=== PATIENT | female | born 1965 | race Caucasian/White ===

== ENCOUNTER 2018-07-14 13:06 | Inpatient (IN) ==
[2018-07-14] MEDS ORDERED: Heparin IV Standard *NO* Bolus IV ONE (16:48)
[2018-07-14] MEDS ORDERED: ONDANSETRON INJ 2 MG/ML 2 ML VIAL IV PRN (16:56)
[2018-07-14] MEDS ORDERED: NITROGLYCERIN SL 0.4 MG/TAB TAB SL PRN (16:56)
[2018-07-14] MEDS ORDERED: ACETAMINOPHEN 325 MG TAB PO PRN (16:56)
[2018-07-14] MEDS ORDERED: ALUMINUM/MAGNESIUM SUSP 30 ML UDC PO PRN (16:56)
--- NOTE | 2018-07-14 17:31 | History & Physical Report ---
Date of Service July 14, 2018 Assessment & Plan (1) NSTEMI (non-ST elevated myocardial infarction): Continue heparin drip, beta-hayley, aspirin, statin therapy, nitrates. Obtain cardiac echo. Consult cardiology Present on Admission?: Yes (2) Acute worsening of stage 4 chronic kidney disease: Obtain renal ultrasound and urine analysis. Serial lab studies. Monitor urine output. Nephrology consultation Present on Admission?: Yes (3) Ischemic cardiomyopathy: Continue current medical management. She did have previous PTCA and multiple stents placed in 2010 (4) HTN (hypertension): Currently treated with topical clonidine and metoprolol. IV hydralazine will be administered as needed History of Present Illness Chief Complaint: Acute non-ST elevation GA, worsening renal function Primary Care Provider: Xander Pike MD 52-year-old Afro-Fijian female with a long-standing history of coronary artery disease, previous GA, hypertension, chronic kidney disease. She was admitted to [facility] 2 days ago with non-ST elevation GA. Her creatinine on admission was 4.3 and now is up to 4.9. Her attending physician at [facility] requested transfer to [facility] for nephrology consultation and cardiology consultation and probable dialysis prior to and in conjunction with cardiac catheterization. At the time of my examination the patient is alert and oriented and denies any chest pain. She has no congestive heart failure on examination. Laboratory studies done earlier today at [facility] were reviewed. She has chronic anemia which does not require transfusion at this time. There is no significant hyperkalemia at this time. Her medications were reviewed and she will continue on topical clonidine, oral isosorbide mononitrate, metoprolol tartrate, atorvastatin and aspirin therapy. IV hydralazine will be administered as needed to control blood pressure. She has had multiple coronary stents in the past, renal artery stent and I believe she also had femoral�popliteal bypass surgery due to severe peripheral arterial disease. She currently is on a heparin drip. 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 The case was discussed with nephrology, Dr. Faisal San. Past Med/Surg History Medical History HTN (hypertension) (Chronic) Ischemic cardiomyopathy (Chronic) Acute worsening of stage 4 chronic kidney disease (Acute) NSTEMI (non-ST elevated myocardial infarction) (Acute) Review of Systems Review of Systems: All systems reviewed & are unremarkable except as noted in HPI & below Physical Exam Constitutional: WD/WN, vitals as above Eyes: PERRL, conjunctivae normal, anicteric sclerae ENMT: external ear and nose normal, oropharynx normal Neck: trachea midline, no thyromegaly Respiratory: normal respiratory effort, lungs clear to auscultation Cardiovascular: Rate/Rhythm: regular rate and regular rhythm Heart Sounds: normal S1, normal S2 and + murmur Gastrointestinal (Abdomen): normal bowel sounds, soft, nontender, no hepatosplenomegaly Musculoskeletal: no cyanosis or clubbing, extremities motor strength 5/5 Skin: no rashes, warm and dry Neurologic: CN's II-XI intact bilaterally and moves all extremities; no focal motor deficits
[2018-07-14] MEDS ORDERED: PATIENT'S HEIGHT AND/OR WEIGHT NEEDED SCH (17:45)
[2018-07-14] MEDS ORDERED: HEPARIN 25000 UNIT/500 ML D5W IV ONE (17:50)
[2018-07-14] MEDS: Heparin Adult STANDARD Wt-Based Dextrose 5% 25,000 units/500 mL IV SCH (18:18)
--- NOTE | 2018-07-14 19:16 | XRay Report ---
XR chest 1V portable HISTORY: Myocardial infarction. Chest pain. COMPARISON: None. FINDINGS: The heart is top normal in size. The lungs are clear. No pleural effusions. No pneumothorax . IMPRESSION: No acute process. Electronically signed by: Anthony Lewis M.D. 07/14/2018 7:15 PM
--- NOTE | 2018-07-14 19:53 | Nephrology Consultation ---
Date of Consultation July 14, 2018 Assessment & Plan (1) NSTEMI (non-ST elevated myocardial infarction): -- Cardiology consult pending -- EKG pending and TTE pending -- Chest pain free currently -- Remains on heparin drip, beta-hayley, aspirin, statin therapy, nitrates (2) Acute worsening of stage 4 chronic kidney disease: -- No emergent indication for dialysis -- Potential future need for MONUMENT SETTER was discussed in detail with the patient this evening -- Ann is agreeable to HD if indicated -- BP accelerated -- Volume status acceptable -- Document strict I/O's -- Repeat metabolic profile (+ Mg + phos) in the AM -- Medications are appropriately dosed for kidney function -- Unfortunately, we are not able to offer tunneled dialysis catheter placement at [facility] at this time -- If HD becomes indicated, temporary catheter may need to be considered or transfer to another facility (3) Ischemic cardiomyopathy: -- Not currently in decompensated CHF (4) HTN (hypertension): -- Home medications include Imdur, topical clonidine, and metoprolol -- Increase Imdur as needed -- Increasing beta-hayley may not be well tolerated due to bradycardia -- IV hydralazine ordered as needed -- Consider addition of a dihydropyridine CCB if BP remains elevated or chest pain persists History of Present Illness Reason for Consultation: Acute on chronic kidney disease Requesting Physician: Fransisco Lazaro MD Attending Physician: Fransisco Lazaro MD History of Present Illness Nephrology consultation was requested this evening for this patient with advanc ed chronic kidney disease who was transferred from [facility] to [facility] for nephrology and cardiology evaluation. Ann was admitted to [facility] from the ER on July 12 with chest pain. There is documentation of concerning lateral ST changes as also on elevated troponin. Cardiac catheterization was suggested but deferred due to inability to provide dialysis at the outside facility. Patient has been medically managed with heparin drip, anti-platelet therapy, and beta-blockers. She has been chest pain free for the past 24 hours. Given her clinical history and presentation, however was felt that she would likely need cardiac catheterization. It was also acknowledge that the patient may likely require hemodialysis in the setting of her known advanced chronic kidney disease and recent acute worsening. Dialysis could not be provided at [facility] over the holiday weekend. Ms. Ann Lopez is a 52-year-old female with advanced chronic kidney disease. Patient's serum creatinine in January of 2018 was 3.9 mg/dL. This is consistent with an estimated glomerular filtration rate of approximately 15 mL/min. Ann is aware of the advanced nature of her kidney disease. She has been evaluated in the past at [facility] and [facility] by Dr. Tucker. She was previously informed that dialysis may be required in the future. She has several friends who are on dialysis. She has discussed hemodialysis in detail with these individuals. Ann is currently living with a friend in [facility]. She moved in with her friend due to recent changes in her house. Medical history includes an extensive history of cardiovascular disease and longstanding hypertension. She was diagnosis severe preeclampsia at the age of [age] years old. She states that her blood pressure never recovered. She has had multiple hospitalizations with accelerated hypertension. In 2009 while living in [facility], she presented with an acute myocardial infarction. She describes a cardiac arrest with resuscitation at that time. She was taken for emergent cardiac catheterization and states 4 stents were placed. Patient did reasonably well until 2013 when she states she had worsening kidney function. She was living in [place] at this time. Her blood pressure was again accelerated. She underwent angiography with stent placement to the right kidney. However several years later on imaging she was told that the right kidney was atrophic and that on that study they could see no evidence of the kidney itself. She has been told she has a single fu nctioning left kidney. She has been diagnosed with CKD IV. Approximately 3 years ago she required bypass for an ischemic left lower extremity. This was complicated by wound infection. She also describes a history of CVA in the past as well as a known cerebral aneurysm. She suffers from chronic migraine headaches. She has an ischemic cardiomyopathy with a history of congestive heart failure. This evening, at the time of my assessment, patient is resting comfortably in bed. She is appropriately anxious and concerned about her health. She has many appropriate questions about hemodialysis. She also asked about the potential need for additional cardiac catheterization. She does note that her activity tolerance has been progressively decreasing over the past several weeks. As matter of fact she notes that a month ago she climb flight of stairs without difficulty, however at this time she is not able to climb a flight of stairs without stopping to rest. She feels very deconditioned. She notes that she has had some progressive depression. She notes that reduce her recent changes in her house her dentition is very poor and she has lost most of her teeth. This is affected her nutrition as well as her mental health. Ann denies any changes in urine output. Dr. Lazaro contacted me this evening for nephrology consultation in anticipation of possible cardiac catheterization. Allergies Allergy/AdvReac Type Severity Reaction Status Date / Time cat dander Allergy Mild Cough Verified 07/14/18 17:47 mold Allergy Mild Cough Verified 07/14/18 17:47 Patient History Medical History HTN (hypertension) (Chronic) Ischemic cardiomyopathy (Chronic) Acute worsening of stage 4 chronic kidney disease (Acute) NSTEMI (non-ST elevated myocardial infarction) (Acute) Surgical History H/O cardiac catheterization Family History Father Heart disease Social History Preferred Language: Japanese Communication Ability: Effective Beliefs That Will Affect Care: None Current Living Situation: Alone Other Information That Helps Us Care for You: No Feels Safe at Home: Yes Safety Concerns: Feels Safe At This Time Smoking Status: Former smoker Tobacco Type: cigarettes Do You Dip or Chew Tobacco: No Second Hand Exposure: No Tobacco Cessation Education Requested by Patient: No Hx Alcohol Use: No Hx Substance Use: Yes substance use type: marijuana Last Used Substance: Days (ago) Last Used Substance Other:: Approx 1 month ago Immunizations: 4 adult children. Lives with a friend in [facility]. Review of Systems Review of Systems: All systems reviewed & are unremarkable except as noted in HPI & below Physical Exam Constitutional: + well hydrated and + obese; no acute distress Eyes: no scleral abnormality and no corneal abnormality ENMT: Mouth: no oral mucosal abnormality and oral mucous membranes not dry Neck: normal visual inspection and trachea midline Respiratory: normal respiratory effort; no respiratory distress Auscultation: lungs clear to auscultation bilaterally Cardiovascular: Heart Sounds: normal S1, normal S2 and + murmur (2/6 ANGELA at RUSB); no gallop Extremities: no edema Gastrointestinal (Abdomen): Percussion/Palpation: abdomen soft; abdomen nontender Musculoskeletal: Extremities: no cyanosis and no clubbing Skin: no rashes Neurologic: Motor/Sensory: no tremor and no asterixis Psychiatric: Orientation: alert Affect: euthymic affect Results & Data Vital Signs (Past 12 Hours) Vital Signs Temp Pulse Resp BP Pulse Ox 07/14/18 19:15 36.7 C 57 L 20 178/89 H 100 07/14/18 17:34 58 L 16 178/88 H 97 Laboratory Results Laboratory studies from [facility] were reviewed. Serum creatinine 4.3 mg/dL on 07/12. Creatinine was 3.9 mg/dL in January 2018.
[2018-07-14] MEDS: FAMOTIDINE 20 MG TAB PO SCH (21:49)
[2018-07-14] MEDS: METOPROLOL TARTRATE 25 MG TAB PO SCH (21:50)
[2018-07-14 23:51] LABS: Partial Thromboplastin Ratio 1.6; Partial Thromboplastin Time 43.9 Seconds (21.0-31.0)
[2018-07-14] MEDS: HydrALAZINE HCL 20 MG/ML VIAL IV PRN (23:53)
[2018-07-14] MEDS: LORazepam 1 MG TAB PO PRN (23:54)
[2018-07-15] MEDS ORDERED: HEPARIN IV BOLUS 3,000 UNITS in SYRINGE 0 ML IV ONE (01:15)
[2018-07-15] MEDS: HydrALAZINE HCL 20 MG/ML VIAL IV PRN (04:13)
[2018-07-15 04:44] LABS: Appearance Urine Clear (Clear); Bacteria Urine Automated Negative (Negative); Bilirubin Urine Negative (Negative); Blood Urine Negative (Negative); Color Urine Yellow; Epithelial Cell Urine Auto 20-30 /lpf (0-5); Glucose Urine UA Negative (Negative); Ketones Urine Negative (Negative); Leukocyte Esterase Urine Trace (Negative); Nitrite Urine Negative (Negative); Protein Urine 2+ (Negative); RBC Urine Automated 0-4 /hpf (0-4); Specific Gravity Urine 1.016 (1.000-1.030); Urobilinogen Urine Negative (Negative)
[2018-07-15] MEDS ORDERED: PERFLUTREN LIPID MICROSPHERE (DEFINITY) IV ONE (07:00)
[2018-07-15 07:39] LABS: Basophils # (auto) 0.02 K/uL (0-0.2); Basophils % (auto) 0.3 %; Eosinophils # (auto) 0.28 K/uL (0-0.5); Eosinophils % (auto) 3.6 %; Hematocrit (blood only) 30.9 % (37-47); Immature Granulocytes # (auto) 0.02 K/uL (0.00-0.02); Immature Granulocytes % (auto) 0.3 %; Lymphocytes # (auto) 2.02 K/uL (1.2-3.4); Lymphocytes % (auto) 26.1 %; Mean Corpuscular Hgb Conc 32.4 g/dL (32-36); Mean Corpuscular Volume 81.3 fL (80-100); Mean Platelet Volume 10.4 fL (7.4-10.4); Monocytes # (auto) 0.49 K/uL (0.11-0.59); Monocytes % (auto) 6.3 %; Neutrophils # (auto) 4.92 K/uL (1.4-6.5); Neutrophils % (auto) 63.4 %; Platelet Count 241 K/uL (130-400); RDW Coefficient of Variation 18.5 % (11.5-14.5); RDW Standard Deviation 54.2 fL (36.4-46.3); White Blood Count 7.75 K/uL (4.8-10.8)
[2018-07-15] MEDS: CHECK CLONIDINE PATCH PLACEMENT SCH ×4 (07:39→23:37)
[2018-07-15] MEDS: ASPIRIN 81 MG ECTAB PO SCH (07:40)
[2018-07-15] MEDS: METOPROLOL TARTRATE 25 MG TAB PO SCH ×2 (07:40→19:50)
[2018-07-15] MEDS: FAMOTIDINE 20 MG TAB PO SCH ×2 (07:40→19:49)
[2018-07-15] MEDS: ATORVASTATIN 10 MG TAB PO SCH (07:41)
[2018-07-15] MEDS: ISOSORBIDE MONO EXTENDED REL 60 MG TABCR PO SCH (07:41)
--- NOTE | 2018-07-15 07:48 | Hospitalist Progress Note ---
Date of Service July 15, 2018 Assessment & Plan (1) NSTEMI (non-ST elevated myocardial infarction): Continue heparin drip, beta-hayley, aspirin, statin therapy, nitrates. Review of cardiac echo shows an EF of 50 to 55% elevated right ventricular systolic pressure. Consult cardiology to consider cardiac cath given previous known CAD although need to have her renal function maximized prior to considering the dye load (2) Acute worsening of stage 4 chronic kidney disease: Obtain renal ultrasound and urine analysis. Serial lab studies. Monitor urine output. Nephrology consultation as determine if dialysis maybe needed in conjunction with cardiac cath versus conservative medical management to try to improve her creatinine she has had somewhat of improvement over the last 24 hours (3) Ischemic cardiomyopathy: Continue current medical management although this is cardia myopathy her echocardiogram shows preserved EF. She did have previous PTCA and multiple stents placed in 2010 (4) HTN (hypertension): Currently treated with topical clonidine and metoprolol. IV hydralazine will be administered as needed Subjective Patient is markedly tearful today she says she is gone through a lot emotionally especially now that her health is been suffering. She says she is not clear and was going to happen during his hospital stay. We went over the fact that she is in renal distress and did have some concern for non-ST elevated MN. Subsequently we need to have her heart evaluated after her kidney function improves. She was offered to speak to counseling services at this time she wishes to hold off on that Review of Systems Review of Systems: ROS: Patient was very tearful during the exam she says she has had no recurrence of the symptoms that had a presented to [facility] No double vision blurry vision No problems with speech or swallowing No palpitations, chest pain or pressure No Wheezing or breathing issues No abdominal pain nausea vomiting diarrhea changes in appetite or weight No burning urine urine frequency or changes in color No focal joint pain or muscle pain No skin rashes or oral lesions No unusual bruising or bleeding No focused back pain or numbness or loss of strength No changes in memory or confusion Physical Exam Physical Exam: The patient appeared well nourished and normally developed. Vital signs as documented. Head exam is unremarkable. normocephalic, atraumatic Neck is without jugular venous distension, thyromegaly, or lymphademopathy Lungs are clear to auscultation and percussion. Cardiac exam reveals Rhythm is regular. First and second heart sounds normal. Abdominal exam reveals normal bowel sounds, no masses, no organomegaly Extremities are nonedematous and both pedal pulses are present Neurologic exam is A&Ox3, no focal deficits, strength is equal bilateral Psychologically she is tearful and sobbing almost hysterically she does not wish to speak to psychiatry at this time Skin is warm Dry without bruises or lesions Results & Data Vital Signs (Past 12 Hours) Vital Signs Temp Pulse Pulse Resp BP Pulse Ox 07/15/18 07:35 36.6 C 67 19 186/95 H 97 07/15/18 04:41 67 17 180/83 H 07/15/18 04:09 37 C 68 19 200/90 H 100 07/15/18 00:52 64 17 164/60 H 07/15/18 00:00 52 L 07/14/18 23:44 36.7 C 63 22 193/85 H 99 07/14/18 21:45 63 182/91 H
[2018-07-15 08:03] LABS: BUN Creatinine Ratio 12.1 (10-20); Calcium 9.2 mg/dl (8.5-10.1); Creatinine Clr Calc Pharmacy 16.5 ml/min; Est GFR (African American) 12.8; Est GFR (Non-African American) 11.1; Magnesium 2.2 mg/dl (1.8-2.4); Potassium 4.3 mmol/L (3.5-5.1)
[2018-07-15 08:04] LABS: Partial Thromboplastin Ratio 2.6
[2018-07-15 08:19] LABS: Partial Thromboplastin Time 69.8 Seconds (21.0-31.0)
--- NOTE | 2018-07-15 08:34 | Ultrasound Report ---
US renal/blad retro comp HISTORY: Renal insufficiency JACOB/CKD COMPARISON: None. FINDINGS: Right kidney: Atrophic. 4 cm maximum dimension. 1 cm upper pole cyst. No evidence for hydronephrosis. The Left kidney: Maximum dimension 10.9 cm. No evidence for hydronephrosis. Normal corticomedullary diff erentiation and cortical thickness. Bladder: No bladder wall thickening. The bilateral ureteral jets were identified. IMPRESSION: 1. Atrophy of the right kidney. 2. Normal left kidney. 3. No evidence for hydronephrosis. The above report was generated using voice recognition software. It may contain grammatical, syntax or spelling errors. Electronically signed by: Desmond Roberts M.D. 07/15/2018 8:32 AM
--- NOTE | 2018-07-15 09:27 | Nephrology Progress Note ---
Date of Service July 15, 2018 Assessment & Plan (1) NSTEMI (non-ST elevated myocardial infarction): -- Plan of care discussed with Dr. Santamaria this morning -- Additional records needed -- No plan for emergent cardiac cath at this time -- EKG pending and TTE pending -- Remains on heparin drip, beta-hayley, aspirin, statin therapy, nitrates (2) Acute worsening of stage 4 chronic kidney disease: -- No emergent indication for dialysis -- Potential future need for 3RD GRADE TEACHER was discussed in detail with the patient -- Renal US demonstrates atrophic right kidney and left kidney free of obstruction -- Will obtain RAD today -- Ann is agreeable to HD if indicated -- Volume status acceptable -- Document strict I/O's -- Repeat metabolic profile tomorrow AM -- Medications are appropriately dosed for kidney function -- Unfortunately, we are not able to offer tunneled dialysis catheter placement at [facility] at this time -- If HD becomes indicated, temporary catheter may need to be considered or transfer to another facility (3) Ischemic cardiomyopathy: -- Not currently in decompensated CHF -- TTE pending (4) HTN (hypertension): -- Start amlodipine 5 mg twice daily at this time -- Clonidine increased to 0.3 overnight -- Check renal artery duplex -- Increasing beta-hayley may not be well tolerated due to bradycardia -- IV hydralazine ordered as needed Subjective Ann is resting comfortably in bed this morning. She denies any specific chest pain overnight. She notes some shoulder discomfort. She believes this may be MSK. It has been somewhat chronic. She denies palpitations. She denies lightheadedness or dizziness. She has not experienced shortness of breath. Ann has not fevers or chills or urinary complaints. Review of Systems Review of Systems: All systems reviewed & are unremarkable except as noted in HPI & below Physical Exam Constitutional: + well hydrated and + obese; no acute distress Eyes: no scleral abnormality and no corneal abnormality ENMT: Mouth: no oral mucosal abnormality and oral mucous membranes not dry Neck: normal visual inspection and trachea midline Respiratory: normal respiratory effort; no respiratory distress Auscultation: lungs clear to auscultation bilaterally Cardiovascular: Heart Sounds: normal S1, normal S2 and + murmur (2/6 ANGELA at RUSB); no gallop Extremities: no edema Gastrointestinal (Abdomen): Percussion/Palpation: abdomen soft; abdomen nontender Musculoskeletal: Extremities: no cyanosis and no clubbing Skin: no rashes Neurologic: Motor/Sensory: no tremor and no asterixis Psychiatric: Orientation: alert Affect: euthymic affect Results & Data Vital Signs (Past 12 Hours) Vital Signs Temp Pulse Pulse Resp BP Pulse Ox 07/15/18 07:35 36.6 C 67 19 186/95 H 97 07/15/18 04:41 67 17 180/83 H 07/15/18 04:09 37 C 68 19 200/90 H 100 07/15/18 00:52 64 17 164/60 H 07/15/18 00:00 52 L 07/14/18 23:44 36.7 C 63 22 193/85 H 99 07/14/18 21:45 63 182/91 H Laboratory Results Laboratory Results - last 24 hr 07/14/18 07/15/18 07/15/18 23:28 04:00 07:06 WBC 7.75 RBC 3.80 L Hgb 10.0 L Hct 30.9 L MCV 81.3 MCH 26.3 MCHC 32.4 RDW Std Deviation 54.2 H RDW Coeff of Lillie 18.5 H Plt Count 241 MPV 10.4 Immature Gran % (Auto) 0.3 Neut % (Auto) 63.4 Lymph % (Auto) 26.1 Lyman % (Auto) 6.3 Eos % (Auto) 3.6 Baso % (Auto) 0.3 Immature Gran # (Auto) 0.02 Neut # (Auto) 4.92 Lymph # (Auto) 2.02 Lyman # (Auto) 0.49 Eos # (Auto) 0.28 Baso # (Auto) 0.02 APTT 43.9 H PTT Ratio 1.6 Sodium Potassium Chloride Carbon Dioxide Anion Gap BUN Creatinine Est Cr Clr Drug Dosing Est GFR ( Amer) Est GFR (Non-Af Amer) BUN/Creatinine Ratio Glucose Calcium Phosphorus Magnesium Urine Color Yellow Urine Appearance Clear Urine pH 5.0 Ur Specific Belfry 1.016 Urine Protein 2+ H Urine Glucose (UA) Negative Urine Ketones Negative Urine Blood Negative Urine Nitrite Negative Urine Bilirubin Negative Urine Urobilinogen Negative Ur Leukocyte Esterase Trace H Urine WBC (Auto) 1-5 Urine RBC (Auto) 0-4 U Hyaline Cast (Auto) 1-5 U Epithel Cells (Auto) 20-30 H Urine Bacteria (Auto) Negative 07/15/18 07/15/18 07:06 07:06 WBC RBC Hgb Hct MCV MCH MCHC RDW Std Deviation RDW Coeff of Lillie Plt Count MPV Immature Gran % (Auto) Neut % (Auto) Lymph % (Auto) Lyman % (Auto) Eos % (Auto) Baso % (Auto) Immature Gran # (Auto) Neut # (Auto) Lymph # (Auto) Lyman # (Auto) Eos # (Auto) Baso # (Auto) APTT 69.8 H* PTT Ratio 2.6 Sodium 145 Potassium 4.3 Chloride 115 H Carbon Dioxide 18 L Anion Gap 12.0 H BUN 52 H Creatinine 4.31 H Est Cr Clr Drug Dosing 16.5 Est GFR ( Amer) 12.8 Est GFR (Non-Af Amer) 11.1 BUN/Creatinine Ratio 12.1 Glucose 96 Calcium 9.2 Phosphorus 5.0 H Magnesium 2.2 Urine Color Urine Appearance Urine pH Ur Specific Belfry Urine Protein Urine Glucose (UA) Urine Ketones Urine Blood Urine Nitrite Urine Bilirubin Urine Urobilinogen Ur Leukocyte Esterase Urine WBC (Auto) Urine RBC (Auto) U Hyaline Cast (Auto) U Epithel Cells (Auto) Urine Bacteria (Auto)
[2018-07-15] MEDS: AMLODIPINE BESYLATE 5 MG TAB PO SCH ×2 (10:32→19:49)
--- NOTE | 2018-07-15 11:50 | Cardiology Consultation ---
Date of Consultation July 15, 2018 Assessment & Plan (1) Elevated troponin: Patient with recent chest pain and elevated troponin but no diagnostic ECG changes. Although cardiac catheterization would be a consideration to further risk stratify, this procedure would almost certainly result in contrast induced nephropathy/renal failure with need for hemodialysis given her tenuous current renal status. Given some uncertainty as to the relationship between her presenting chest discomfort and her overnight recurrent shoulder discomfort, as well as uncertainty regarding her usual troponin level with substantial renal insufficiency, would favor further evaluation before proceeding to cathet erization. Her echocardiogram showed preserved systolic function with only a small inferobasal area of akinesis of uncertain duration (no comparison study available). Recommend stat ECG for any recurrent symptoms (shoulder or chest pain). Absent more characteristic or definitive evidence of recent infarct or ischemia, recommend dobutamine stress echocardiogram to better risk stratify and determine whether she is in fact at sufficient risk to merit sacrificing her kidney function. Also, this will allow time to obtain her previous medical records from [place], where she apparently had 4 stents placed some years ago. At the time of my evaluation, patient was asymptomatic and hemodynamically stable. (2) HTN (hypertension): Longstanding refractory hypertension with multiple complications. Current BP suboptimally controlled. Discussed with Dr. San, agree with adding amlodipine to her regimen. (3) Acute worsening of stage 4 chronic kidney disease: per Dr. San (4) CAD (coronary artery disease): Known coronary artery disease. Status post multiple stents at an outside institution several years ago, details not currently available. History of Present Illness Attending Physician: Ilya Blanchard MD History of Present Illness 52-year-old woman with advanced chronic kidney disease (Creatinine 4.3) and extensive cardiac history transferred from [facility] 07/14/2018. She had presented to [facility] 07/12/2018 with chest pain and was noted to have an elevated troponin (5 range) without definite ischemic ECG changes. Cardiac catheterization was recommended, but she was transferred here BID anticipation of sven procedural need for dialysis (which apparently is unavailable at [facility]). She has not had any further chest pain, but overnight she noted 2 episodes of left shoulder pain lasting up to half are each time as well as a separate intermittent headache with no associated neurologic symptoms. This morning, she was fatigued but had no other complaints. Allergies Allergy/AdvReac Type Severity Reaction Status Date / Time cat dander Allergy Mild Cough Verified 07/14/18 17:47 mold Allergy Mild Cough Verified 07/14/18 17:47 Patient History Medical History HTN (hypertension) (Chronic) Ischemic cardiomyopathy (Chronic) Acute worsening of stage 4 chronic kidney disease (Acute) NSTEMI (non-ST elevated myocardial infarction) (Acute) Pulmonary embolism (Resolved) Bipolar disorder COPD (chronic obstructive pulmonary disease) Cerebral aneurysm Diastolic congestive heart failure History of stent insertion of renal artery Peripheral arterial disease Renal artery stenosis Surgical History S/P coronary artery stent placement (Resolved) H/O cardiac catheterization Status post femoral-popliteal bypass surgery Status post hysterectomy Family History Heart disease Father Social History Preferred Language: Georgian Communication Ability: Effective Beliefs That Will Affect Care: None Current Living Situation: Alone Other Information That Helps Us Care for You: No Feels Safe at Home: Yes Safety Concerns: Feels Safe At This Time Smoking Status: Former smoker Tobacco Type: cigarettes Do You Dip or Chew Tobacco: No Second Hand Exposure: No Tobacco Cessation Education Requested by Patient: No Hx Alcohol Use: No Hx Substance Use: Yes substance use type: marijuana Last Used Substance: Days (ago) Last Used Substance Other:: Approx 1 month ago Review of Systems Constitutional: + body aches, + fatigue and + weakness; no fever and no chills Eyes: no problem reported Ear, Nose, Mouth, Throat: no problem reported Respiratory: + dyspnea on exertion; no cough Cardiovascular: as per Subjective / HPI, + chest pain and + dyspnea on exertion; no dyspnea at rest, no orthopnea, no paroxysmal nocturnal dyspnea, no palpitations, no syncope and no edema Neurologic: + headache(s); no localized weakness Psychiatric: + depression Physical Exam Physical Exam: No distress. Appears comfortable. Skin: No unusual lesions or ecchymosis. HEENT: Unremarkable. Neck: Jugular venous pulse 1/[address] to the angle of the jaw at 90�, loud transmitted murmur versus carotid bruits noted bilaterally. Lungs: Clear and equal breath sounds bilaterally. Cardiac: Regular rhythm with normal S1 and S2. 3/6 systolic ejection murmur right upper sternal border ring the carotids and left sternal border. 2/6 apical holosystolic murmur radiating to the axilla. No diastolic murmur or distinct gallop. Abdomen: Benign. Extremities: Nontender without edema. Intact peripheral pulses. Neurologic: Normal affect, nonfocal Results & Data Vital Signs (Past 12 Hours) Vital Signs Temp Pulse Pulse Resp BP Pulse Ox 07/15/18 11:21 36.6 C 62 12 159/72 H 99 07/15/18 07:35 36.6 C 67 19 186/95 H 97 07/15/18 04:41 67 17 180/83 H 07/15/18 04:09 37 C 68 19 200/90 H 100 07/15/18 00:52 64 17 164/60 H 07/15/18 00:00 52 L Laboratory Results Laboratory Tests 07/15/18 07/15/18 07:06 07:06 WBC 7.75 Hgb 10.0 L Plt Count 241 BUN 52 H Creatinine 4.31 H Troponin level at [facility] varied between 4.5 and 5.5. Diagnostic Findings Echocardiogram 07/15/2018 showed normal left ventricular size with low-normal systolic function (EF equals 50-55 %). Small area of inferobasal akinesis, otherwise normal wall motion. Mild aortic stenosis, moderate mitral regurgitation with [id number] tricuspid regurgitation and moderate pulmonary hypertension. 07/14 CXR FINDINGS: The heart is top normal in size. The lungs are clear. No pleural effusions. No pneumothorax. IMPRESSION: No acute process. ECG 07/14/2018: Sinus rhythm, left ventricular hypertrophy with repolarization abnormality. No comparison available.
[2018-07-15] MEDS: Heparin Adult STANDARD Wt-Based Dextrose 5% 25,000 units/500 mL IV SCH (12:48)
[2018-07-15] MEDS: LORazepam 1 MG TAB PO PRN ×2 (12:48→19:49)
--- NOTE | 2018-07-15 14:49 | Ultrasound Report ---
Study: Renal arterial Doppler. HISTORY: Hypertension: FINDINGS: Right kidney is atrophic. Right renal artery is not seen. Left kidney demonstrates a moderate increase in mid renal artery velocities. Resistive indices are so mewhat increased. IMPRESSION:: 1. Atrophic right kidney with nonvisibility of the right renal artery. 2. Moderate stenosis mid left renal artery with moderate chronic small vessel change Electronically signed by: Desmond Roberts M.D. 07/15/2018 2:47 PM
[2018-07-15 15:31] LABS: Partial Thromboplastin Ratio 2.2
[2018-07-15 15:33] LABS: Partial Thromboplastin Time 60.9 Seconds (21.0-31.0)
[2018-07-16 06:10] LABS: Basophils # (auto) 0.02 K/uL (0-0.2); Basophils % (auto) 0.3 %; Eosinophils # (auto) 0.26 K/uL (0-0.5); Eosinophils % (auto) 3.7 %; Hematocrit (blood only) 29.3 % (37-47); Hemoglobin 9.6 g/dL (12.0-16.0); Immature Granulocytes # (auto) 0.01 K/uL (0.00-0.02); Immature Granulocytes % (auto) 0.1 %; Lymphocytes # (auto) 1.79 K/uL (1.2-3.4); Lymphocytes % (auto) 25.6 %; Mean Corpuscular Hgb Conc 32.8 g/dL (32-36); Mean Corpuscular Volume 80.3 fL (80-100); Mean Platelet Volume 10.4 fL (7.4-10.4); Monocytes # (auto) 0.53 K/uL (0.11-0.59); Monocytes % (auto) 7.6 %; Neutrophils # (auto) 4.37 K/uL (1.4-6.5); Neutrophils % (auto) 62.7 %; Platelet Count 246 K/uL (130-400); RDW Coefficient of Variation 18.5 % (11.5-14.5); RDW Standard Deviation 54.1 fL (36.4-46.3); Red Blood Count 3.65 M/uL (4.2-5.4); White Blood Count 6.98 K/uL (4.8-10.8)
[2018-07-16 06:34] LABS: Partial Thromboplastin Ratio 1.8
[2018-07-16 06:41] LABS: Partial Thromboplastin Time 49.7 Seconds (21.0-31.0)
[2018-07-16 06:44] LABS: BUN Creatinine Ratio 13.1 (10-20); Calcium 8.6 mg/dl (8.5-10.1); Creatinine Clr Calc Pharmacy 17.4 ml/min; Est GFR (African American) 13.7; Est GFR (Non-African American) 11.8; Potassium 4.1 mmol/L (3.5-5.1)
[2018-07-16] MEDS: Heparin Adult STANDARD Wt-Based Dextrose 5% 25,000 units/500 mL IV SCH (06:44)
[2018-07-16] MEDS: ASPIRIN 81 MG ECTAB PO SCH (08:00)
[2018-07-16] MEDS: CHECK CLONIDINE PATCH PLACEMENT SCH ×2 (08:00→16:21)
[2018-07-16] MEDS: FAMOTIDINE 20 MG TAB PO SCH ×2 (08:00→20:34)
[2018-07-16] MEDS: AMLODIPINE BESYLATE 5 MG TAB PO SCH ×2 (08:01→20:34)
[2018-07-16] MEDS: ISOSORBIDE MONO EXTENDED REL 60 MG TABCR PO SCH (08:01)
[2018-07-16] MEDS: METOPROLOL TARTRATE 25 MG TAB PO SCH ×2 (08:01→20:34)
[2018-07-16] MEDS: ATORVASTATIN 10 MG TAB PO SCH (08:01)
[2018-07-16] MEDS ORDERED: DOBUTamine HCL 12.5 MG/ML 20 ML VIAL IV ONE (08:28)
[2018-07-16] MEDS ORDERED: ATROPINE SULFATE 0.1 MG/ML 10ML SYR IV ONE ×2 (08:29→09:44)
[2018-07-16] MEDS ORDERED: METOPROLOL TARTRATE 1 MG/ML VIAL IV ONE ×2 (08:29→09:50)
--- NOTE | 2018-07-16 08:45 | Nephrology Progress Note ---
Date of Service July 16, 2018 Assessment & Plan (1) NSTEMI (non-ST elevated myocardial infarction): -- Dobutamine stress scheduled for this AM -- EKG and TTE reviewed: small area of inferobasal akinesis; RVSP 50-60 mmHg -- Remains on heparin drip, beta-hayley, aspirin, statin therapy, nitrates (2) Acute worsening of stage 4 chronic kidney disease: -- No emergent indication for dialysis -- Moderate stenosis of mid L renal artery, atrophic left kidney -- Document strict I/O's -- Repeat metabolic profile tomorrow AM -- Medications are appropriately dosed for kidney function -- If HD becomes indicated, temporary catheter may need to be considered or transfer to another facility -- Plan of care discussed with Dr. Blanchard this morning (3) Ischemic cardiomyopathy: -- Not currently in decompensated CHF -- Start furosemide 40 mg daily today -- Avoid LILIAN/ARB due to kidney dysfunction (4) HTN (hypertension): -- Check orthostatic vitals -- Furosemide 40 mg added today -- Amlodipine 5 mg twice daily added yesterday -- Clonidine 0.3 mg patch -- Metoprolol tartrate 25 mg BID, beta hayley limited by heart rate: carvedilol option? -- IV hydralazine ordered as needed -- Potential option to increase Imdur to 90 mg -- Spironolactone at a low dose may also provide added benefit -- Ultimately evaluation of GLADIS may be necessary (5) Renal artery stenosis: -- Discussed with Dr. Blanchard -- Very high likelihood of requiring dialysis, she is aware of this -- Appreciate cardiology evaluation -- Further evaluation pending stress test findings and adjustment of antihypertensives Subjective Ann remains very anxious today. She started crying and stating that she just wants to be better. When asked about chest pain, she said "I have so much pain all over. It's hard to tell what is what." Specifically, she notes that she is developing back pain. She denies dyspnea. She has some lightheadedness when she stands. Headache has improved after she was able to get a little sleep last night. Review of Systems Review of Systems: All systems reviewed & are unremarkable except as noted in HPI & below Physical Exam Constitutional: + obese; no acute distress Eyes: no scleral abnormality and no corneal abnormality ENMT: Mouth: no oral mucosal abnormality and oral mucous membranes not dry Neck: normal visual inspection and trachea midline Respiratory: normal respiratory effort; no respiratory distress Auscultation: lungs clear to auscultation bilaterally Cardiovascular: Heart Sounds: normal S1, normal S2 and + murmur (2/6 ANGELA at RUSB); no gallop Extremities: no edema Gastrointestinal (Abdomen): Percussion/Palpation: abdomen soft; abdomen nontender Musculoskeletal: Extremities: no cyanosis and no clubbing Skin: no rashes Neurologic: Motor/Sensory: no tremor and no asterixis Psychiatric: Orientation: alert Affect: euthymic affect Results & Data Vital Signs (Past 12 Hours) Vital Signs Temp Pulse Pulse Resp BP BP Pulse Ox 07/16/18 07:39 36.7 C 60 18 172/84 H 99 07/16/18 03:25 37.0 C 57 L 17 177/71 H 100 07/15/18 23:33 36.7 C 66 16 174/80 H 96 07/15/18 23:10 64 Laboratory Results Laboratory Results - last 24 hr 07/15/18 07/15/18 07/16/18 11:19 14:56 05:42 WBC 6.98 RBC 3.65 L Hgb 9.6 L Hct 29.3 L MCV 80.3 MCH 26.3 MCHC 32.8 RDW Std Deviation 54.1 H RDW Coeff of Lillie 18.5 H Plt Count 246 MPV 10.4 Immature Gran % (Auto) 0.1 Neut % (Auto) 62.7 Lymph % (Auto) 25.6 [place] % (Auto) 7.6 Eos % (Auto) 3.7 Baso % (Auto) 0.3 Immature Gran # (Auto) 0.01 Neut # (Auto) 4.37 Lymph # (Auto) 1.79 [place] # (Auto) 0.53 Eos # (Auto) 0.26 Baso # (Auto) 0.02 APTT 60.9 H* PTT Ratio 2.2 Sodium Potassium Chloride Carbon Dioxide Anion Gap BUN Creatinine Est Cr Clr Drug Dosing Est GFR ( Amer) Est GFR (Non-Af Amer) BUN/Creatinine Ratio Glucose POC Glucose 132 H Calcium 07/16/18 07/16/18 05:42 05:42 WBC RBC Hgb Hct MCV MCH MCHC RDW Std Deviation RDW Coeff of Lillie Plt Count MPV Immature Gran % (Auto) Neut % (Auto) Lymph % (Auto) [place] % (Auto) Eos % (Auto) Baso % (Auto) Immature Gran # (Auto) Neut # (Auto) Lymph # (Auto) [place] # (Auto) Eos # (Auto) Baso # (Auto) APTT 49.7 H* PTT Ratio 1.8 Sodium 140 Potassium 4.1 Chloride 112 H Carbon Dioxide 19 L Anion Gap 9.0 BUN 53 H Creatinine 4.08 H Est Cr Clr Drug Dosing 17.4 Est GFR ( Amer) 13.7 Est GFR (Non-Af Amer) 11.8 BUN/Creatinine Ratio 13.1 Glucose 137 H POC Glucose Calcium 8.6
[2018-07-16] MEDS: FUROSEMIDE 40 MG TAB PO SCH (10:08)
--- NOTE | 2018-07-16 15:40 | Hospitalist Progress Note ---
Date of Service July 16, 2018 Assessment & Plan (1) NSTEMI (non-ST elevated myocardial infarction): PT did have dobutamine stress echo that was negative for ischemia, There for will consider that her initial presentation to be demand ischemia and not n stemi will continue beta-hayley, aspirin, statin therapy Recent cardiac echo shows an EF of 50 to 55% elevated right ventricular systolic pressure. given accelerated htn and renal artery disease will ask Dr Gore to comment if renal artery is ammenable to intervention (2) Acute worsening of stage 4 chronic kidney disease: Nephrology consultation has begun to initial diuretic therapy given clinical suggestion of fluid retention, given results of renal ultrasound with atrophic right kidney and non visualized right renal artery and stenosis of left renal artery, consideration of dialysis in the future is a real possibility, for now is maintaining electrolyes, adding diuretics for volume managmenet (3) Ischemic cardiomyopathy: Continue current medical management although this her most recent echocardiogram shows preserved EF. She did have previous PTCA and multiple stents placed in 2010 (4) HTN (hypertension): Currently treated with topical clonidine amlodipine and metoprolol. isosorbide also Subjective Patient is in much better emotional state today she is at peace with her health issues. There is some psychosocial issues related to her home and living situations need to be worked out. She underwent a ketamine stress test today a nd the results of her renal ultrasound were communicated to her suggesting she has atrophic right kidney with an absent right renal artery and a moderately stenotic left renal artery Review of Systems Review of Systems: ROS: well nourished well developed. No double vision blurry vision No problems with speech or swallowing No palpitations, chest pain or pressure No Wheezing or breathing issues No abdominal pain nausea vomiting diarrhea No burning urine urine frequency or changes in color No focal joint pain or muscle pain No skin rashes or oral lesions No unusual bruising or bleeding No focused back pain or numbness or loss of strength No changes in memory or confusion Physical Exam Physical Exam: The patient appeared well nourished and normally developed. Vital signs as documented. Head exam is unremarkable. normocephalic, atraumatic Neck is without jugular venous distension, thyromegaly, or lymphademopathy Lungs are clear to auscultation and percussion. Cardiac exam reveals Rhythm is regular. slight systolic murmur Abdominal exam reveals normal bowel sounds, no masses, no organomegaly, no bruits heard Extremities are nonedematous and both pedal pulses are present Neurologic exam is A&Ox3, no focal deficits, strength is equal bilateral Psychologically seems anxious and depressed Skin is warm Dry without bruises or lesions Results & Data Vital Signs (Past 12 Hours) Vital Signs Temp Pulse Pulse Pulse Resp BP BP 07/16/18 15:17 36.6 C 56 L 18 153/79 H 07/16/18 11:48 36.7 C 65 19 166/84 H 07/16/18 10:07 68 16 159/88 H 07/16/18 07:39 36.7 C 60 18 172/84 H 07/16/18 07:00 60 Pulse Ox 07/16/18 15:17 99 07/16/18 11:48 96 07/16/18 10:07 98 07/16/18 07:39 99 07/16/18 07:00
[2018-07-16] MEDS ORDERED: MoRPHine SULFATE 4 MG/ML 1 ML CARP\\VIAL ONE (16:36)
[2018-07-16 16:49] LABS: Prothrombin Time 10.2 Seconds (9.0-12.0)
--- NOTE | 2018-07-16 17:09 | Cardiology Progress Note ---
Date of Service July 16, 2018 Assessment & Plan (1) Elevated troponin: Suspect demand ischemia secondary to uncontrolled hypertension and various somatic and emotional stressors. No ischemia on ECG and no inducible ischemia on DSE. Currrent cardiac status is favorable and stable, no further cardiac procedures at this time.> At the time of my evaluation, patient was asymptomatic and hemodynamically stable. (2) HTN (hypertension): Longstanding refractory hypertension with multiple complications. Current BP suboptimally controlled but improving. Agree with addition of diuretic. (3) Acute worsening of stage 4 chronic kidney disease: per Dr. San (4) CAD (coronary artery disease): Known coronary artery disease. Status post multiple stents at an outside institution several years ago, fortunately systolic function is preserved with only minor basal inferior wall motion abnormality as residual. Subjective 52-year-old woman with advanced chronic kidney disease (Creatinine 4.3) and extensive cardiac history transferred from [facility] 07/14/2018. She had presented to [facility] 07/12/2018 with chest pain and was noted to have an elevated troponin (5 range) without definite ischemic ECG changes. Cardiac catheterization was recommended, but she was transferred here BID anticipation of sven procedural need for dialysis (which apparently is unavailable at [facility]). She has not had any further chest pain, but has had intermittent left shoulder pain which is transient and headaches which are also fleeting. She underwent a dobutamine stress echo today - no ischemia at 85% MPHR. She feels well currently, no complaints. Review of Systems Constitutional: no fever and no chills Respiratory: as per Subjective / HPI Cardiovascular: as per Subjective / HPI Neurologic: + headache(s) Psychiatric: + anxiety Physical Exam Physical Exam: No distress. Appears comfortable. Skin: No unusual lesions or ecchymosis. HEENT: Unremarkable. Neck: Jugular venous pulse 1/[address] to the angle of the jaw at 90�, loud transmitted murmur versus carotid bruits noted bilaterally. Lungs: Clear and equal breath sounds bilaterally. Cardiac: Regular rhythm with normal S1 and S2. 3/6 systolic ejection murmur right upper sternal border ring the carotids and left sternal border. 2/6 apical holosystolic murmur radiating to the axilla. No diastolic murmur or distinct gallop. Abdomen: Benign. Extremities: Nontender without edema. Intact peripheral pulses. Neurologic: Normal affect, nonfocal Results & Data Vital Signs (Past 12 Hours) Vital Signs Temp Pulse Pulse Pulse Resp BP BP 07/16/18 16:00 59 L 07/16/18 15:17 36.6 C 56 L 18 153/79 H 07/16/18 11:48 36.7 C 65 19 166/84 H 07/16/18 10:07 68 16 159/88 H 07/16/18 07:39 36.7 C 60 18 172/84 H 07/16/18 07:00 60 Pulse Ox 07/16/18 16:00 07/16/18 15:17 99 07/16/18 11:48 96 07/16/18 10:07 98 07/16/18 07:39 99 07/16/18 07:00 Laboratory Results Laboratory Tests 07/16/18 07/16/18 05:42 05:42 Hgb 9.6 L BUN 53 H Creatinine 4.08 H
--- NOTE | 2018-07-16 19:12 | Cardiology Consultation ---
Date of Consultation July 16, 2018 Assessment & Plan (1) Renal artery stenosis: 2. Elevated troponin/coronary artery disease 3. Stage IV chronic kidney disease 4. Long-standing resistant hypertension 5. Atrophic right kidney, post right renal artery stenting, RRA no occluded 6. Peripheral arterial disease post left femoropopliteal bypass Reviewed renal artery ultrasound obtained yesterday. Based on peak systolic velocity and renal aorta ratio, stenosis appears to be <60% and not severe. Would not expect current degree of stenosis to be contributing significantly to renal failure or refractory hypertension and as result potential benefit from renal artery stenting seems limited. Will discuss further with Nephrology and Dr. San. If still thought that renal artery disease is a significant contributing factor we could consider further invasive hemodynamic assessemnt. Reviewed DSE from today and agree with deferring cardiac cath at this time. History of Present Illness Attending Physician: Ilya Blanchard MD History of Present Illness Ms. Lopez is a 52-year-old woman with a history of coronary artery disease post prior VA and PCI, peripheral arterial disease post left femoropopliteal bypass and prior right renal artery stenting, long-standing refractory hypertension, prior cerebral aneurysm with CVA and stage IV chronic kidney d isease. She was transferred to [facility] from [facility] in the setting of atypical chest symptoms, elevated troponin and possible need for cardiac catheterization and initiation of dialysis. Interventional cardiology consulted in the setting of initial question of need for catheterization and newly recognized renal artery stenosis. From a cardiac standpoint since admission patient has been chest pain-free and further risk stratification with dobutamine stress echocardiogram was recommended by Dr. Santamaria. Stress echo today showed preserved LV function with resting inferior, inferolateral hypokinesis but otherwise normal augmentation. She is been maintained on 4 antihypertensive along with furosemide. Blood pressures initially intermittently elevated to the 200s. Creatinine stable around 4. Renal ultrasound showed atrophic right kidney without visualized right renal artery and normal size left kidney questionable moderate mid left renal artery stenosis, PSV 173, RAR 2.6. Allergies Allergy/AdvReac Type Severity Reaction Status Date / Time cat dander Allergy Mild Cough Verified 07/14/18 17:47 mold Allergy Mild Cough Verified 07/14/18 17:47 Home Medications Home Medications Medication Instructions Recorded Confirmed Type apixaban [Eliquis] 5 mg PO BID 07/16/18 07/16/18 History clonidine 0.3 mg TRANSDERMAL Q7D 07/16/18 07/16/18 History diltiazem HCl [Cartia XT] 240 mg PO DAILY 07/16/18 07/16/18 History fluoxetine 20 mg PO DAILY 07/16/18 07/16/18 History isosorbide mononitrate 30 mg PO DAILY 07/16/18 07/16/18 History terazosin 2 mg PO BID 07/16/18 07/16/18 History trazodone 50 mg PO HS 07/16/18 07/16/18 History Patient History Medical History HTN (hypertension) (Chronic) Ischemic cardiomyopathy (Chronic) Acute worsening of stage 4 chronic kidney disease (Acute) NSTEMI (non-ST elevated myocardial infarction) (Acute) Pulmonary embolism (Resolved) Bipolar disorder COPD (chronic obstructive pulmonary disease) Cerebral aneurysm Diastolic congestive heart failure History of stent insertion of renal artery Peripheral arterial disease Renal artery stenosis Surgical History S/P coronary artery stent placement (Resolved) H/O cardiac catheterization Status post femoral-popliteal bypass surgery Status post hysterectomy Family History Heart disease Father Social History Preferred Language: Belarusian Communication Ability: Effective Beliefs That Will Affect Care: None Current Living Situation: Alone Other Information That Helps Us Care for You: No Feels Safe at Home: Yes Safety Concerns: Feels Safe At This Time Smoking Status: Former smoker Tobacco Type: cigarettes Do You Dip or Chew Tobacco: No Second Hand Exposure: No Tobacco Cessation Education Requested by Patient: No Hx Alcohol Use: No Hx Substance Use: Yes substance use type: marijuana Last Used Substance: Days (ago) Last Used Substance Other:: Approx 1 month ago Review of Systems Review of Systems: All systems reviewed & are unremarkable except as noted in HPI & below Physical Exam Physical Exam: General: Comfortable, no acute distress Eyes: Sclerae anicteric, extraocular movements intact HENT: Oropharynx clear mucous membranes moist Neck: Normal carotid upstrokes, no bruits. No JVD. Lungs: Clear to auscultation bilaterally, no rhonchi or wheezes Cardiac: Regular rate and rhythm, 2 out of 6 systolic ejection murmur Vascular: 2+ radial, diminished DP/PT pulses on the left, normal capillary refill. 2+ DP on right. Abdomen: Soft, nontender, nondistended, positive bowel sounds. Extremities: Well perfused, no peripheral edema Neuro: Nonfocal Psych: Alert orient x3, normal affect and mood Results & Data Vital Signs (Past 12 Hours) Vital Signs Temp Pulse Pulse Pulse Resp BP BP 07/16/18 16:00 59 L 07/16/18 15:17 36.6 C 56 L 18 153/79 H 07/16/18 11:48 36.7 C 65 19 166/84 H 07/16/18 10:07 68 16 159/88 H 07/16/18 07:39 36.7 C 60 18 172/84 H 07/16/18 07:00 60 Pulse Ox 07/16/18 16:00 07/16/18 15:17 99 07/16/18 11:48 96 07/16/18 10:07 98 07/16/18 07:39 99 07/16/18 07:00
[2018-07-16] MEDS: ENOXAPARIN INJ 30 MG/0.3 ML SYR SQ SCH (20:38)
[2018-07-16] MEDS: LORazepam 1 MG TAB PO PRN (21:48)
[2018-07-17] MEDS: CHECK CLONIDINE PATCH PLACEMENT SCH ×4 (01:09→23:01)
[2018-07-17] MEDS ORDERED: MoRPHine SULFATE 2 MG/ML CARP IV STA (03:47)
[2018-07-17 05:44] LABS: Basophils # (auto) 0.02 K/uL (0-0.2); Basophils % (auto) 0.3 %; Eosinophils # (auto) 0.28 K/uL (0-0.5); Eosinophils % (auto) 4.2 %; Hematocrit (blood only) 31.3 % (37-47); Hemoglobin 10.3 g/dL (12.0-16.0); Immature Granulocytes # (auto) 0.01 K/uL (0.00-0.02); Immature Granulocytes % (auto) 0.2 %; Lymphocytes # (auto) 2.04 K/uL (1.2-3.4); Lymphocytes % (auto) 30.7 %; Mean Corpuscular Hgb Conc 32.9 g/dL (32-36); Mean Corpuscular Volume 80.9 fL (80-100); Mean Platelet Volume 10.1 fL (7.4-10.4); Monocytes # (auto) 0.51 K/uL (0.11-0.59); Monocytes % (auto) 7.7 %; Neutrophils # (auto) 3.79 K/uL (1.4-6.5); Neutrophils % (auto) 56.9 %; Platelet Count 248 K/uL (130-400); RDW Coefficient of Variation 18.8 % (11.5-14.5); RDW Standard Deviation 54.9 fL (36.4-46.3); Red Blood Count 3.87 M/uL (4.2-5.4); White Blood Count 6.65 K/uL (4.8-10.8)
[2018-07-17 06:15] LABS: BUN Creatinine Ratio 14.2 (10-20); Calcium 8.7 mg/dl (8.5-10.1); Creatinine Clr Calc Pharmacy 16.8 ml/min; Est GFR (African American) 13.1; Est GFR (Non-African American) 11.3; Potassium 4.6 mmol/L (3.5-5.1)
[2018-07-17 06:20] LABS: Ferritin 17.7 ng/ml (8-388)
[2018-07-17] MEDS: ISOSORBIDE MONO EXTENDED REL 60 MG TABCR PO SCH (07:31)
[2018-07-17] MEDS: METOPROLOL TARTRATE 25 MG TAB PO SCH ×2 (07:31→19:35)
[2018-07-17] MEDS: FUROSEMIDE 40 MG TAB PO SCH (07:31)
[2018-07-17] MEDS: AMLODIPINE BESYLATE 5 MG TAB PO SCH ×2 (07:31→19:34)
[2018-07-17] MEDS: ATORVASTATIN 10 MG TAB PO SCH (07:31)
[2018-07-17] MEDS: FAMOTIDINE 20 MG TAB PO SCH ×2 (07:31→19:35)
[2018-07-17] MEDS: ASPIRIN 81 MG ECTAB PO SCH (07:31)
[2018-07-17] MEDS ORDERED: cloNIDine HCL 0.3 MG/24 HR TRANSDERM SYS TD SCH (09:00)
--- NOTE | 2018-07-17 09:28 | Nephrology Progress Note ---
Date of Service July 17, 2018 Assessment & Plan (1) NSTEMI (non-ST elevated myocardial infarction): -- Negative DSE -- Medical therapy being optimized (2) Acute worsening of stage 4 chronic kidney disease: -- No emergent indication for dialysis -- Creatinine stable -- Document strict I/O's -- Repeat metabolic profile tomorrow AM -- Medications are appropriately dosed for kidney function -- Plan of care discussed with Dr. Blanchard this morning -- Very high likelihood of requiring dialysis, she is aware of this (3) Ischemic cardiomyopathy: -- Continue furosemide 40 mg daily -- Avoid LILIAN/ARB due to kidney dysfunction (4) HTN (hypertension): -- Check orthostatic vitals -- Furosemide 40 mg -- Amlodipine 5 mg twice daily -- Clonidine 0.3 mg patch -- Metoprolol tartrate 25 mg BID -- Imdur 60 mg daily -- BP improved, no additional evaluation of GLADIS necessary at this time (5) Renal artery stenosis: -- Appreciate cardiology evaluation -- Kidney function stable, BP improved, no additional evaluation necessary at this time Subjective Ann denies any additional chest pain. Headaches have improved. She is breathing comfortably. She does endorse some lightheadedness. Denies presyncope. Some shoulder discomfort persists but this appears to be MSK. Review of Systems Review of Systems: All systems reviewed & are unremarkable except as noted in HPI & below Physical Exam Constitutional: + obese; no acute distress Eyes: no scleral abnormality and no corneal abnormality ENMT: Mouth: no oral mucosal abnormality and oral mucous membranes not dry Neck: normal visual inspection and trachea midline Respiratory: normal respiratory effort; no respiratory distress Auscultation: lungs clear to auscultation bilaterally Cardiovascular: Heart Sounds: normal S1, normal S2 and + murmur (2/6 ANGELA at RUSB); no gallop Extremities: no edema Gastrointestinal (Abdomen): Percussion/Palpation: abdomen soft; abdomen nontender Musculoskeletal: Extremities: no cyanosis and no clubbing Skin: no rashes Neurologic: Motor/Sensory: no tremor and no asterixis Psychiatric: Orientation: alert Affect: euthymic affect Results & Data Vital Signs (Past 12 Hours) Vital Signs Temp Pulse Pulse Pulse Resp BP Pulse Ox 07/17/18 07:33 36.6 C 57 L 17 134/73 99 07/17/18 04:05 36.7 C 61 18 158/88 H 97 07/17/18 03:12 55 L 07/16/18 23:44 36.8 C 57 L 17 125/45 L 99 Laboratory Results Laboratory Results - last 24 hr 07/16/18 07/17/18 07/17/18 16:27 05:31 05:31 WBC 6.65 RBC 3.87 L Hgb 10.3 L Hct 31.3 L MCV 80.9 MCH 26.6 MCHC 32.9 RDW Std Deviation 54.9 H RDW Coeff of Lillie 18.8 H Plt Count 248 MPV 10.1 Immature Gran % (Auto) 0.2 Neut % (Auto) 56.9 Lymph % (Auto) 30.7 Trigg % (Auto) 7.7 Eos % (Auto) 4.2 Baso % (Auto) 0.3 Immature Gran # (Auto) 0.01 Neut # (Auto) 3.79 Lymph # (Auto) 2.04 Trigg # (Auto) 0.51 Eos # (Auto) 0.28 Baso # (Auto) 0.02 PT 10.2 INR 1.0 Sodium 141 Potassium 4.6 Chloride 112 H Carbon Dioxide 22 Anion Gap 7.0 BUN 60 H Creatinine 4.23 H Est Cr Clr Drug Dosing 16.8 Est GFR ( Amer) 13.1 Est GFR (Non-Af Amer) 11.3 BUN/Creatinine Ratio 14.2 Glucose 112 H Calcium 8.7 Iron 23 L Transferrin 244 Transferrin % Sat 7 L Ferritin 17.7
--- NOTE | 2018-07-17 09:41 | Cardiology Progress Note ---
Date of Service July 17, 2018 Assessment & Plan (1) Elevated troponin: Most consistent with demand ischemia secondary to uncontrolled hypertension. No inducible ischemia on dobutamine stress echo 07/16. Current cardiac status remains favorable in stable, no further cardiac workup planned at this time. (2) CAD (coronary artery disease): See above. (3) HTN (hypertension): BP significantly improved with the addition of diuretic. No further recommendations at this time. Case discussed with Dr. San. (4) Acute worsening of stage 4 chronic kidney disease: Renal function stable. Followed by Dr. San. Subjective 52-year-old woman with advanced chronic kidney disease (Creatinine 4.3) and extensive cardiac history transferred from [facility] 07/14/2018. She has not had any further chest pain and had an uneventful night. She feels much better today than she has since she was admitted. She underwent a dobutamine stress echo 07/16 - no ischemia at 85% MPHR. She feels well currently, no complaints. Review of Systems Constitutional: no fever and no chills Respiratory: as per Subjective / HPI Cardiovascular: as per Subjective / HPI; no chest pain Neurologic: no headache(s) Physical Exam Physical Exam: No distress. Appears comfortable. Skin: No unusual lesions or ecchymosis. HEENT: Unremarkable. Neck: Jugular venous pulse at the clavicle at 90�, loud transmitted murmur versus carotid bruits noted bilaterally. Lungs: Clear and equal breath sounds bilaterally. Cardiac: Regular rhythm with normal S1 and S2. 3/6 systolic ejection murmur right upper sternal border ring the carotids and left sternal border. 2/6 apical holosystolic murmur radiating to the axilla. No diastolic murmur or distinct gallop. Abdomen: Benign. Extremities: Nontender without edema. Intact peripheral pulses. Neurologic: Normal affect, nonfocal Results & Data Vital Signs (Past 12 Hours) Vital Signs Temp Pulse Pulse Pulse Resp BP Pulse Ox 07/17/18 07:33 36.6 C 57 L 17 134/73 99 07/17/18 04:05 36.7 C 61 18 158/88 H 97 07/17/18 03:12 55 L 07/16/18 23:44 36.8 C 57 L 17 125/45 L 99 Laboratory Results Laboratory Tests 07/16/18 07/17/18 05:42 05:31 BUN 53 H 60 H Creatinine 4.08 H 4.23 H
[2018-07-17] MEDS: IRON SUCROSE 200 MG in 0.9 % SODIUM CHLORIDE 100 ML IV SCH (11:00)
--- NOTE | 2018-07-17 14:47 | Hospitalist Progress Note ---
Date of Service July 17, 2018 Assessment & Plan (1) Acute worsening of stage 4 chronic kidney disease: Nephrology consultation has begun to initial diuretic therapy given clinical suggestion of fluid retention, given results of renal ultrasound with atrophic right kidney and non visualized right renal artery and stenosis of left renal artery, consideration of dialysis in the future is a real possibility, for now is maintaining electrolyes, adding diuretics for volume management. Patient was seen by interventional cardiology who feels that the degree of stenosis and the flow changes does not warrant intervention as there is significant risk the patient could have injury to left-sided kidney. Subsequently we will continue to manage her medically excepting a significant elevation of her creatinine. She is maintaining acid-base balance and potassium (2) NSTEMI (non-ST elevated myocardial infarction): PT did have dobutamine stress echo that was negative for ischemia, There for will consider that her initial presentation to be demand ischemia and not n stemi will continue beta-hayley, aspirin, statin therapy Recent cardiac echo shows an EF of 50 to 55% elevated right ventricular systolic pressure. Continue to treat her hypertension (3) Ischemic cardiomyopathy: Continue current medical management although this her most recent echocardiogram shows preserved EF. She did have previous PTCA and multiple stents placed in 2010 (4) HTN (hypertension): Currently treated with topical clonidine amlodipine and metoprolol. isosorbide also Subjective Patient is in better spirits today, she has been deconditioned through the last few days and typically uses a cane for ambulation. she is planning on returning to her friends house after discharege, will need pt/ot screening prior to discharge Review of Systems Review of Systems: ROS: well nourished well developed. No double vision blurry vision No problems with speech or swallowing No palpitations, chest pain or pressure No Wheezing or breathing issues No abdominal pain nausea vomiting diarrhea No burning urine urine frequency or changes in color No focal joint pain or muscle pain No skin rashes or oral lesions No unusual bruising or bleeding No focused back pain or numbness baseline ambulation issues are slightly worsened No changes in memory or confusion Physical Exam Physical Exam: The patient appeared chronically ill Vital signs as documented. Head exam is unremarkable. normocephalic, atraumatic Neck is without jugular venous distension, thyromegaly, or lymphademopathy Lungs are clear to auscultation and percussion. Cardiac exam reveals Rhythm is regular. First and second heart sounds normal. Abdominal exam reveals normal bowel sounds, no masses, no organomegaly Extremities are nonedematous and both pedal pulses are present Neurologic exam is A&Ox3, no focal deficits, strength is equal bilateral but diminished Psychologically seems neither anxious or depressed Skin is warm Dry without bruises or lesions Results & Data Vital Signs (Past 12 Hours) Vital Signs Temp Pulse Pulse Pulse Resp BP BP 07/17/18 10:57 36.7 C 51 L 18 124/66 07/17/18 07:33 36.6 C 57 L 17 134/73 07/17/18 04:05 36.7 C 61 18 158/88 H 07/17/18 03:12 55 L Pulse Ox 07/17/18 10:57 98 07/17/18 07:33 99 07/17/18 04:05 97 07/17/18 03:12
[2018-07-17] MEDS: ENOXAPARIN INJ 30 MG/0.3 ML SYR SQ SCH (19:35)
[2018-07-17] MEDS: LORazepam 1 MG TAB PO PRN (21:22)
--- NOTE | 2018-07-18 06:37 | Hospitalist Progress Note ---
Date of Service July 18, 2018 Assessment & Plan (1) Acute worsening of stage 4 chronic kidney disease: Nephrology consultation has begun to initial diuretic therapy given clinical suggestion of fluid retention, given results of renal ultrasound with atrophic right kidney and non visualized right renal artery and stenosis of left renal artery, consideration of dialysis in the future is a real possibility, for now is maintaining electrolyes, adding diuretics for volume management. Patient was seen by interventional cardiology who feels that the degree of stenosis and the flow changes does not warrant intervention as there is significant risk the patient could have injury to left-sided kidney. Subsequently we will continue to manage her medically excepting a significant elevation of her creatinine. She is maintaining acid-base balance and potassium (2) NSTEMI (non-ST elevated myocardial infarction): PT did have dobutamine stress echo that was negative for ischemia, There for will consider that her initial presentation to be demand ischemia and not n stemi will continue beta-hayley, aspirin, statin therapy Recent cardiac echo shows an EF of 50 to 55% elevated right ventricular systolic pressure. Continue to treat her hypertension (3) Ischemic cardiomyopathy: Continue current medical management although this her most recent echocardiogram shows preserved EF. She did have previous PTCA and multiple stents placed in 2010 (4) HTN (hypertension): Currently treated with topical clonidine amlodipine and metoprolol. isosorbide also Results & Data Vital Signs (Past 12 Hours) Vital Signs Temp Pulse Pulse Pulse Resp BP Pulse Ox 07/18/18 03:42 36.6 C 45 L 16 145/65 H 97 07/18/18 00:21 36.6 C 54 L 16 166/66 H 99 07/17/18 22:20 45 L 07/17/18 19:33 36.4 C L 55 L 17 159/81 H 98
[2018-07-18 06:53] LABS: BUN Creatinine Ratio 15.2 (10-20); Calcium 9.4 mg/dl (8.5-10.1); Creatinine Clr Calc Pharmacy 17.6 ml/min; Est GFR (African American) 13.9; Potassium 4.9 mmol/L (3.5-5.1)
[2018-07-18] MEDS: FUROSEMIDE 40 MG TAB PO SCH (08:10)
[2018-07-18] MEDS: AMLODIPINE BESYLATE 5 MG TAB PO SCH (08:10)
[2018-07-18] MEDS: CHECK CLONIDINE PATCH PLACEMENT SCH (08:10)
[2018-07-18] MEDS: ASPIRIN 81 MG ECTAB PO SCH (08:11)
[2018-07-18] MEDS: METOPROLOL TARTRATE 25 MG TAB PO SCH (08:11)
[2018-07-18] MEDS: ISOSORBIDE MONO EXTENDED REL 60 MG TABCR PO SCH (08:11)
[2018-07-18] MEDS: ATORVASTATIN 10 MG TAB PO SCH (08:11)
[2018-07-18] MEDS: FAMOTIDINE 20 MG TAB PO SCH (08:11)
[2018-07-18] MEDS: IRON SUCROSE 200 MG in 0.9 % SODIUM CHLORIDE 100 ML IV SCH (08:16)
--- NOTE | 2018-07-18 10:25 | Nephrology Progress Note ---
Date of Service July 18, 2018 Assessment & Plan (1) NSTEMI (non-ST elevated myocardial infarction): (2) Acute worsening of stage 4 chronic kidney disease: -- No emergent indication for dialysis -- Creatinine stable -- Medications are appropriately dosed for kidney function -- Close outpatient follow up will be necessary -- Patient would like to follow in the [facility] neph[place] clinic at [facility] with me post discharge (3) Ischemic cardiomyopathy: -- Volume status acceptable -- Continue furosemide 40 mg daily -- Avoid LILIAN/ARB due to kidney dysfunction (4) HTN (hypertension): -- Check orthostatic vitals -- Repeat BP later this afternoon -- Furosemide 40 mg -- Amlodipine 5 mg twice daily -- Clonidine 0.3 mg patch -- Metoprolol tartrate 25 mg BID -- Imdur 60 mg daily -- BP improved, no additional evaluation of GLADIS necessary at this time (5) Renal artery stenosis: -- Appreciate cardiology evaluation -- Kidney function stable, BP improved, no additional evaluation necessary at this time Subjective Ann is doing well this morning. She was walking in the [place] with her cane. She is breathing comfortably. She denies any lightheadedness. She denies chest pain or palpitations. She hopes to be discharged home today. Review of Systems Review of Systems: All systems reviewed & are unremarkable except as noted in HPI & below Physical Exam Constitutional: + obese; no acute distress Eyes: no scleral abnormality and no corneal abnormality ENMT: Mouth: no oral mucosal abnormality and oral mucous membranes not dry Neck: normal visual inspection and trachea midline Respiratory: normal respiratory effort; no respiratory distress Auscultation: lungs clear to auscultation bilaterally Cardiovascular: Heart Sounds: normal S1, normal S2 and + murmur (2/6 ANGELA at RUSB); no gallop Extremities: no edema Gastrointestinal (Abdomen): Percussion/Palpation: abdomen soft; abdomen nontender Musculoskeletal: Extremities: no cyanosis and no clubbing Skin: no rashes Neurologic: Motor/Sensory: no tremor and no asterixis Psychiatric: Orientation: alert Affect: euthymic affect Results & Data Vital Signs (Past 12 Hours) Vital Signs Temp Pulse Pulse Resp BP Pulse Ox 07/18/18 08:07 36.7 C 60 20 175/92 H 100 07/18/18 03:42 36.6 C 45 L 16 145/65 H 97 07/18/18 00:21 36.6 C 54 L 16 166/66 H 99 Laboratory Results Laboratory Results - last 24 hr 07/18/18 05:57 Sodium 142 Potassium 4.9 Chloride 112 H Carbon Dioxide 21 Anion Gap 9.0 BUN 61 H Creatinine 4.04 H Est Cr Clr Drug Dosing 17.6 Est GFR ( Amer) 13.9 Est GFR (Non-Af Amer) 12.0 BUN/Creatinine Ratio 15.2 Glucose 95 Calcium 9.4
--- NOTE | 2018-07-18 14:28 | Cardiology Progress Note ---
Date of Service July 18, 2018 Assessment & Plan (1) Elevated troponin: Most consistent with demand ischemia secondary to uncontrolled hypertension. No inducible ischemia on dobutamine stress echo 07/16. Current cardiac status remains favorable in stable, no further cardiac workup planned at this time. Will sign off from a cardiology standpoint. The patient plans to transfer her care to not need any providers, as such I would be glad to see her as an outpatient for her cardiac concerns. (2) CAD (coronary artery disease): See above. (3) HTN (hypertension): BP significantly improved with the addition of diuretic. No further recommendations at this time. . (4) Acute worsening of stage 4 chronic kidney disease: Renal function stable. Followed by Dr. San. Subjective 52-year-old woman with advanced chronic kidney disease (Creatinine 4.3) and extensive cardiac history transferred from [facility] 07/14/2018. She has not had any further chest pain and had an uneventful night. She feels well today, no chest pain, dyspnea, headache or other complaints. She underwent a dobutamine stress echo 07/16 - no ischemia at 85% MPHR. Physical Exam Physical Exam: o distress. Appears comfortable. Skin: No unusual lesions or ecchymosis. HEENT: Unremarkable. Neck: Jugular venous pulse at the clavicle at 90�, loud transmitted murmur versus carotid bruits noted bilaterally. Lungs: Clear and equal breath sounds bilaterally. Cardiac: Regular rhythm with normal S1 and S2. 3/6 systolic ejection murmur right upper sternal border ring the carotids and left sternal border. 2/6 apical holosystolic murmur radiating to the axilla. No diastolic murmur or distinct gallop. Abdomen: Benign. Extremities: Nontender without edema. Intact peripheral pulses. Neurologic: Normal affect, nonfocal Results & Data Vital Signs (Past 12 Hours) Vital Signs Temp Pulse Pulse Resp BP BP Pulse Ox 07/18/18 11:44 36.7 C 57 L 20 161/88 H 100 07/18/18 08:07 36.7 C 60 20 175/92 H 100 07/18/18 03:42 36.6 C 45 L 16 145/65 H 97 Laboratory Results Laboratory Tests 07/17/18 07/18/18 05:31 05:57 BUN 60 H 61 H Creatinine 4.23 H 4.04 H
--- NOTE | 2018-07-18 19:19 | Discharge Summary ---
Date of Service July 18, 2018 Admission HPI Per Admitting Provider 52-year-old Afro-Chinese female with a long-standing history of coronary artery disease, previous SC, hypertension, chronic kidney disease. She was admitted to [facility] 2 days ago with non-ST elevation SC. Her creatinine on admission was 4.3 and now is up to 4.9. Her attending physician at [facility] requested transfer to [facility] for nephrology consultation and cardiology consultation and probable dialysis prior to and in conjunction with cardiac catheterization. At the time of my examination the patient is alert and oriented and denies any chest pain. She has no congestive heart failure on examination. Laboratory studies done earlier today at [facility] were reviewed. She has chronic anemia which does not require transfusion at this time. There is no significant hyperkalemia at this time. Her medications were reviewed and she will continue on topical clonidine, oral isosorbide mononitrate, metoprolol tartrate, atorvastatin and aspirin therapy. IV hydralazine will be administered as needed to control blood pressure. She has had multiple coronary stents in the past, renal artery stent and I believe she also had femoral�popliteal bypass surgery due to severe peripheral arterial disease. She currently is on a heparin drip. 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 The case was discussed with nephrology, Dr. Faisal San. Principal Diagnosis non cardiac chest pain acute on chronic renal failure stage 4 atrophic right kidney moderate left renal artery stenosis Discharge Exam The patient appeared to be in better spirits she is ambling in the hallway with a cane Vital signs as documented. Head exam is unremarkable. normocephalic, atraumatic Neck is without jugular venous distension, thyromegaly, or lymphademopathy Lungs are clear to auscultation and percussion. Cardiac exam reveals Rhythm is regular. Abdominal exam reveals normal bowel sounds, no masses, no organomegaly or bruits are heard Psychologically seems neither anxious or depressed although early in his stay she seems significantly distraught Discharge Data Allergies Allergy/AdvReac Type Severity Reaction Status Date / Time cat dander Allergy Mild Cough Verified 07/14/18 17:47 mold Allergy Mild Cough Verified 07/14/18 17:47 Consultations 07/14/18 16:56 Consult Cardiology Routine Consult Nephrology Routine 07/15/18 11:35 Consult Cardiology Routine Ordered Studies 07/15/18 12:55 US duplex renal artery Routine 07/15/18 19:23 US renal/blad retro comp Routine Hospital Course (1) Acute worsening of stage 4 chronic kidney disease: Nephrology consultation has begun to initial diuretic therapy given clinical suggestion of fluid retention, given results of renal ultrasound with atrophic right kidney and non visualized right renal artery and stenosis of left renal artery, consideration of dialysis in the future is a real possibility, for now is maintaining electrolyes, adding diuretics for volume management. Patient was seen by interventional cardiology who feels that the degree of stenosis and the flow changes does not warrant intervention as there is significant risk the patient could have injury to left-sided kidney. Subsequently we will continue to manage her medically excepting a significant elevation of her creatinine. She is maintaining acid-base balance and potassium to be discharged home on a daily diuretic dose (2) NSTEMI (non-ST elevated myocardial infarction): PT did have dobutamine stress echo that was negative for ischemia, There for will consider that her initial presentation to be demand ischemia and not n stemi will continue beta-hayley, aspirin, statin therapy Recent cardiac echo shows an EF of 50 to 55% elevated right ventricular systolic pressure. Continue to treat her hypertension (3) Ischemic cardiomyopathy: Continue current medical management although this her most recent echocardiogram shows preserved EF. She did have previous PTCA and multiple stents placed in 2010 (4) HTN (hypertension): Currently treated with topical clonidine amlodipine and metoprolol. isosorbide also diuretic therapy with Lasix Total Time Total Time Spent Total Time Spent (In Minutes): greater than 30 minutes were required to prepare discharge Discharge Plan Discharge Items Patient Disposition: Home - Home Health Services Reason For Visit: CHRONIC RENAL FAILURE Discharge Diagnosis: non cardiac chest pain reduced kidney function renal artery narrowing on the left high blood pressure Discharge Goals: Decrease discomfort and Diagnostic testing Activity: Resume your previous activity Non-emergency contact: Primary Care Provider Call non-emergency contact if: you have any medication questions Follow-up/Referrals: Russ Walter III, CRNP [Nurse Practitioner] - 09/10/18 9:45 am (An appointment has been made on your behalf with a Primary Care Provider with [facility]. A task was sent to the nurse asking if an appointment becomes available sooner that pt be notified. Please call SHAYLA Montes Dr. with any questions or concerns. ) Diet: Low Potassium (2gm) Addtl Provider Instructions: please have low potassium diet, please also have low salt diet to help your blood pressure Prescriptions: New furosemide 40 mg Tablet 40 mg PO QAM Qty: 30 RF: 4 atorvastatin 10 mg Tablet 10 mg PO QAM Qty: 30 RF: 3 amlodipine [Norvasc] 5 mg Tablet 5 mg PO BID Qty: 60 RF: 3 aspirin [Ecotrin Low Strength] 81 mg Tablet,Delayed Release (Dr/Ec) 81 mg PO QAM Qty: 60 RF: 0 metoprolol tartrate 25 mg Tablet 25 mg PO BID Qty: 60 RF: 4 Continued clonidine 0.3 mg/24 hr patch weekly 0.3 mg transdermal Q7D RF: 0 fluoxetine 20 mg capsule 20 mg PO DAILY RF: 0 Eliquis 5 mg tablet 5 mg PO BID RF: 0 Changed isosorbide mononitrate 30 mg tablet extended release 24 hr 60 mg PO DAILY Qty: 60 RF: 3 Discontinued diltiazem HCl [Cartia XT] 240 mg capsule,extended release 24hr 240 mg PO DAILY RF: 0 trazodone 50 mg tablet 50 mg PO HS RF: 0 terazosin 2 mg capsule 2 mg PO BID RF: 0 Stand-Alone Forms: [employer] [facility] [place] [employer] [facility]/Other Patient Handouts: Diet Low Potassium Dc, Diet Low Salt Dc Discharge Orders: Discharge Order (Routine); Ordered 07/18/18 Ordered By: Ilya Blanchard Admission Data Admit Date/Time: 07/14/18 16:32 Attending Provider: Ilya Blanchard Admit Provider: Fransisco Lazaro Primary Care Provider: Xander Pike Other Providers: Kar Soto ; Edilson Santamaria ; Wing Galvez ; Js Howard ; Moris Gil Jr ; Baltazar Lobo ; Annmarie Mejia ; Lm Gore ; Lm Dale ; John Haro ; Fransisco Kaba ; Ashley Rivera ; Chiquita Briseno ; Cecilio Romero ; Wojciech Cabral ; Anat King ; Faisal San ; Fransisco Lazaro Service: Telemetry Other Interventions: Discharge Summary Assessment (RN) Last Done: 07/18/18 15:41 DC Date/Time DO NOT enter until pt leaves facility: 07/18/18 16:51
== END 2018-07-18 16:51 | disposition home or self-care (01) | DRG 305 ==
LOC: SUATTDRO 16:32 → 2E 16:32
DX: N26.1 Atrophy of kidney (terminal); Z95.5 Presence of coronary angioplasty implant and graft; N18.4 Chronic kidney disease, stage 4 (severe); N17.9 Acute kidney failure, unspecified; I25.5 Ischemic cardiomyopathy; Z82.49 Family history of ischemic heart disease and other diseases of the circulatory system; Z87.891 Personal history of nicotine dependence; I13.10 Hypertensive heart and chronic kidney disease without heart failure, with stage 1 through stage 4 chronic kidney disease, or unspecified chronic kidney disease; I70.1 Atherosclerosis of renal artery; I25.10 Atherosclerotic heart disease of native coronary artery without angina pectoris; I73.9 Peripheral vascular disease, unspecified; I50.30 Unspecified diastolic (congestive) heart failure; I24.8 Other forms of acute ischemic heart disease; I25.2 Old myocardial infarction